=== PATIENT | female | born 1970 | race Hispanic/Latino ===

== ENCOUNTER 2016-07-22 20:10 | Emergency (ER) | payer SELFPAY ==
[~2016-07-22] VITALS: Ht 162.6 cm; Wt 83.0 kg
[~2016-07-22 20:10] MED LIST: FERROUS SULF325 M1 OR; LISINOPRIL10 MG PO; ZOFRAN ODT4 MG PO
[2016-07-22 21:59] LABS: URINE BILIRUBIN - DIPSTICK NEGATIVE (NEGATIVE); URINE BLOOD DIPSTICK LARGE (NEGATIVE); URINE CLARITY CLEAR; URINE COLOR YELLOW; URINE GLUCOSE - DIPSTICK NEGATIVE (NEGATIVE); URINE KETONE NEGATIVE (NEGATIVE); URINE LEUK ESTERASE NEGATIVE (NEGATIVE); URINE NITRITE - DIPSTICK NEGATIVE (Negative); URINE PROTEIN - DIPSTICK NEGATIVE (NEG-TRACE); URINE SPECIFIC GRAVITY 1.015; URINE UROBILINOGEN - DIPSTICK 0.2 E.U./dL (0.2)
[2016-07-22 22:07] LABS: ALBUMIN 4.6 g/dL (3.2-5.0); ALKALINE PHOSPHATASE 67 u/l (38-126); AMYLASE 67 u/l (30-110); ANION GAP 14 (6-22 (CALC)); BILIRUBIN, TOTAL 0.3 mg/dL (0.0-1.4); BUN 10 mg/dL (7-17); BUN/CREATININE RATIO 15 (12-20 (CALC)); CALCIUM 9.8 mg/dL (8.4-10.2); CARBON DIOXIDE 29 mmol/l (22-30); CHLORIDE 102 mmol/l (95-108); CREATININE 0.7 mg/dL (0.5-1.0); GFR > 60 ML/MIN (>=60 (CALC)); GFR FOR AFR.AMER. > 60 ML/MIN (>=60 (CALC)); GLUCOSE 88 mg/dL (65-105); LIPASE 194 u/l (23-300); SGOT/AST 18 u/l (14-36); SGPT/ALT 24 u/l (9-52); SODIUM 141 mmol/l (137-146); TOTAL PROTEIN 8.1 g/dL (6.3-8.2)
[2016-07-22 22:28] LABS: HEMATOCRIT 46.9 % (37.0-47.0); HEMOGLOBIN 14.5 g/dl (12.0-16.0); IMMATURE GRANULOCYTES 0.5 % (0.0-1.0); MEAN CELL VOLUME 84.1 fL CALC (80.0-100.0); MEAN CORPUSCULAR HGB CONC 30.9 g/L CALC (32.0-36.0); NEUT# 5.1 thou/uL (2.00-7.15); RED BLOOD COUNT 5.58 mill/uL (4.20-5.60); RED CELL DISTRI WIDTH 19.9 % (11.5-15.5)
[2016-07-22 22:37] LABS: URINE RBC TNTC RBC/hpf (0-5); URINE SQUAMOUS EPITHELIAL CELL FEW EPI/hpf (0-FEW)
[2016-07-22] MEDS ORDERED: ULTRAM50 M1 PO (23:57)
[2016-07-23 00:15] VITALS: BP 157/93
== END 2016-07-23 00:15 | disposition home or self-care (01) | DRG 761 ==
LOC: ED 20:10
PROVIDERS: Emergency Medicine
DX: N85.9 Noninflammatory disorder of uterus, unspecified (principal)

== ENCOUNTER 2016-10-05 10:22 | Emergency (ER) | payer SELFPAY ==
[~2016-10-05] VITALS: Ht 162.6 cm; Wt 68.2 kg
[~2016-10-05 10:22] MED LIST changes: +ULTRAM50 M1 PO
[2016-10-05] MEDS ORDERED: LISINOP/HCTZ1 TA1 PO (10:37)
[2016-10-05] MEDS ORDERED: FIORICET PO (10:37)
[2016-10-05 11:47] LABS: HEMATOCRIT 45.9 % (37.0-47.0); HEMOGLOBIN 14.9 g/dl (12.0-16.0); IMMATURE GRANULOCYTES 0.2 % (0.0-1.0); MEAN CELL VOLUME 87.9 fL CALC (80.0-100.0); MEAN CORPUSCULAR HGB 28.5 pG CALC (26.0-32.0); MEAN CORPUSCULAR HGB CONC 32.5 g/L CALC (32.0-36.0); NEUT# 4.16 thou/uL (2.00-7.15); RED BLOOD COUNT 5.22 mill/uL (4.20-5.60); RED CELL DISTRI WIDTH 15.9 % (11.5-15.5)
[2016-10-05 12:01] LABS: ANION GAP 15 (6-22 (CALC)); BUN 10 mg/dL (7-17); BUN/CREATININE RATIO 15 (12-20 (CALC)); CALCIUM 9.6 mg/dL (8.4-10.2); CARBON DIOXIDE 30 mmol/l (22-30); CHLORIDE 101 mmol/l (95-108); CREATININE 0.6 mg/dL (0.5-1.0); GFR > 60 ML/MIN (>=60 (CALC)); GFR FOR AFR.AMER. > 60 ML/MIN (>=60 (CALC)); GLUCOSE 83 mg/dL (65-105); POTASSIUM 3.6 mmol/l (3.5-5.1); SODIUM 143 mmol/l (137-146)
[2016-10-05 13:08] VITALS: BP 150/98
== END 2016-10-05 13:20 | disposition home or self-care (01) | DRG 103 ==
LOC: ED 10:22
PROVIDERS: Family Medicine
DX: G43.909 Migraine, unspecified, not intractable, without status migrainosus (principal); R11.0 Nausea

== ENCOUNTER 2017-10-01 17:51 | Emergency (ER) | payer SELFPAY ==
[~2017-10-01] VITALS: Ht 162.6 cm; Wt 87.2 kg
[~2017-10-01 17:51] MED LIST changes: +FIORICET PO; +LISINOP/HCTZ1 TA1 PO
[2017-10-01 18:42] LABS: HEMATOCRIT 47.8 % (37.0-47.0); HEMOGLOBIN 15.5 g/dl (12.0-16.0); IMMATURE GRANULOCYTES 0.5 % (0.0-5.0); MEAN CELL VOLUME 91.7 fL CALC (80.0-100.0); MEAN CORPUSCULAR HGB 29.8 pG CALC (26.0-32.0); MEAN CORPUSCULAR HGB CONC 32.4 g/L CALC (32.0-36.0); NEUT# 5.85 thou/uL (2.00-7.15); RED BLOOD COUNT 5.21 mill/uL (4.20-5.60); RED CELL DISTRI WIDTH 14.3 % (11.5-15.5)
[2017-10-01 18:55] LABS: ALBUMIN 4.7 g/dL (3.2-5.0); ALKALINE PHOSPHATASE 77 u/l (38-126); BILIRUBIN, TOTAL 0.6 mg/dL (0.0-1.4); BUN 12 mg/dL (7-17); BUN/CREATININE RATIO 22 (12-20 (CALC)); CARBON DIOXIDE 27 mmol/l (22-30); CHLORIDE 102 mmol/l (95-108); CREATININE 0.6 mg/dL (0.5-1.0); GFR > 60 ML/MIN (>=60 (CALC)); GFR FOR AFR.AMER. > 60 ML/MIN (>=60 (CALC)); SGPT/ALT 37 u/l (9-52); SODIUM 143 mmol/l (137-146); TOTAL PROTEIN 8.4 g/dL (6.3-8.2)
[2017-10-01 19:08] LABS: ANION GAP 19 (6-22 (CALC)); POTASSIUM 4.5 mmol/l (3.5-5.1); SGOT/AST 39 u/l (14-36)
[2017-10-01 20:57] VITALS: BP 139/81
[2017-10-01 20:59] LABS: URINE BILIRUBIN - DIPSTICK NEGATIVE (NEGATIVE); URINE BLOOD DIPSTICK TRACE-LYSED (NEGATIVE); URINE COLOR YELLOW; URINE GLUCOSE - DIPSTICK NEGATIVE (NEGATIVE); URINE KETONE NEGATIVE (NEGATIVE); URINE LEUK ESTERASE NEGATIVE (NEGATIVE); URINE NITRITE - DIPSTICK NEGATIVE (Negative); URINE PROTEIN - DIPSTICK NEGATIVE (NEG-TRACE); URINE SPECIFIC GRAVITY <=1.005; URINE UROBILINOGEN - DIPSTICK 0.2 E.U./dL (0.2)
[2017-10-01 21:01] LABS: URINE CLARITY CLEAR
[2017-10-01] MEDS ORDERED: CLONIDINE0.1 MG PO (21:06)
== END 2017-10-01 21:20 | disposition home or self-care (01) | DRG 103 ==
LOC: ED 17:51
PROVIDERS: Family Medicine
DX: G44.209 Tension-type headache, unspecified, not intractable (principal); I10 Essential (primary) hypertension; E11.9 Type 2 diabetes mellitus without complications

== ENCOUNTER 2020-02-01 17:45 | Emergency (ER) | payer SELFPAY ==
[~2020-02-01] VITALS: Ht 162.6 cm; Wt 85.0 kg
[~2020-02-01 17:45] MED LIST changes: +CLONIDINE0.1 MG PO
[2020-02-01 18:27] LABS: IMMATURE GRANULOCYTES 0.2 % (0.0-5.0); MEAN CELL VOLUME 90.4 fL CALC (80.0-100.0); MEAN CORPUSCULAR HGB 29.3 pG CALC (26.0-32.0); MEAN CORPUSCULAR HGB CONC 32.4 g/dL CAL (32.0-36.0); NEUT# 4.06 thou/uL (2.00-7.15); RED BLOOD COUNT 4.58 mill/uL (4.20-5.60); RED CELL DISTRI WIDTH 13.2 % (11.5-15.5)
[2020-02-01 18:28] LABS: HEMATOCRIT 41.4 % (37.0-47.0); HEMOGLOBIN 13.4 g/dl (12.0-16.0)
[2020-02-01] MEDS ORDERED: PRAVASTATIN SOD20 MG PO (18:28)
[2020-02-01] MEDS ORDERED: NAPROXEN250 MG PO (18:28)
[2020-02-01] MEDS ORDERED: LISINOP/HCTZ1 TA2 PO (18:29)
[2020-02-01 18:44] LABS: ALBUMIN 4.5 g/dL (3.2-5.0); ALKALINE PHOSPHATASE 78 u/l (38-126); ANION GAP 11 (6-22 (CALC)); BILIRUBIN, TOTAL 0.4 mg/dL (0.0-1.4); BUN 16 mg/dL (7-17); BUN/CREATININE RATIO 27 (12-20 (CALC)); CARBON DIOXIDE 32 mmol/l (22-30); CHLORIDE 102 mmol/l (95-108); CREATININE 0.6 mg/dL (0.5-1.0); GFR > 60 ML/MIN (>=60 (CALC)); GFR FOR AFR.AMER. > 60 ML/MIN (>=60 (CALC)); POTASSIUM 3.8 mmol/l (3.5-5.1); SGOT/AST 28 u/l (14-36); SODIUM 141 mmol/l (137-146); TOTAL PROTEIN 7.9 g/dL (6.3-8.2)
[2020-02-01 19:52] VITALS: BP 159/98
== END 2020-02-01 19:52 | disposition home or self-care (01) | DRG 305 ==
LOC: ED 17:45
DX: I10 Essential (primary) hypertension (principal); E11.9 Type 2 diabetes mellitus without complications

== ENCOUNTER 2023-09-23 06:15 | Emergency (ER) | payer OTHER ==
[2023-09-23] VITALS (10 sets, daily range): BP systolic 132–179; BP diastolic 80–112
[~2023-09-23] VITALS: Ht 162.6 cm; Wt 91.0 kg
[~2023-09-23 06:15] MED LIST changes: +LISINOP/HCTZ1 TA2 PO; +NAPROXEN250 MG PO; +PRAVASTATIN SOD20 MG PO
[2023-09-23] MEDS ORDERED: LOSARTAN/HCT1 TA2 PO (06:27)
[2023-09-23] MEDS ORDERED: ONDANSETRON HCl 4 MG/2 ML SDV IV ONE (06:30)
[2023-09-23] MEDS ORDERED: HYDROmorphone HCL 2 MG/AMP IV ONE (06:30)
[2023-09-23] MEDS ORDERED: ONDANSETRON HCl 4 MG/2 ML SDV IM ONE (07:10)
[2023-09-23] MEDS ORDERED: HYDROmorphone HCL 2 MG/AMP IM ONE (07:10)
[2023-09-23 08:47] LABS: BASO% 0.3 % (0-3); EOS% 0.4 % (0-8); IMMATURE GRANULOCYTES 0.5 % (0.0-5.0); LYMPH% 10.6 % (15-41); MEAN CELL VOLUME 95.5 fL CALC (80.0-100.0); MEAN CORPUSCULAR HGB 29.9 pG CALC (26.0-32.0); MEAN CORPUSCULAR HGB CONC 31.3 g/dL CAL (32.0-36.0); MONO% 5.9 % (2-13); NEUT# 9.15 thou/uL (2.00-7.15); NEUT% 82.3 % (42-76); RED BLOOD COUNT 5.32 mill/uL (4.20-5.60); RED CELL DISTRI WIDTH 15.6 % (11.5-15.5)
[2023-09-23 08:52] LABS: HEMATOCRIT 50.8 % (37.0-47.0); HEMOGLOBIN 15.9 g/dl (12.0-16.0)
[2023-09-23 09:11] LABS: ALBUMIN 4.6 g/dL (3.2-5.0); BILIRUBIN, TOTAL 0.5 mg/dL (0.02-1.3); CREATININE 0.6 mg/dL (0.5-1.0); POTASSIUM 3.7 mmol/l (3.5-5.1); TOTAL PROTEIN 7.8 g/dL (6.3-8.2)
== END 2023-09-23 09:40 | disposition home or self-care (01) | DRG 605 ==
LOC: ED 06:15
PROVIDERS: Emergency Medicine
DX: S20.212A Contusion of left front wall of thorax, initial encounter (principal); I10 Essential (primary) hypertension; E11.9 Type 2 diabetes mellitus without complications; W18.2XXA Fall in (into) shower or empty bathtub, initial encounter; Y93.E1 Activity, personal bathing and showering; Y92.002 Bathroom of unspecified non-institutional (private) residence as the place of occurrence of the external cause

== ENCOUNTER 2023-10-08 17:36 | Emergency (ER) | payer OTHER ==
[2023-10-08] VITALS (16 sets, daily range): BP systolic 113–175; BP diastolic 83–113
[~2023-10-08] VITALS: Ht 162.6 cm; Wt 99.8 kg
[~2023-10-08 17:36] MED LIST changes: +LOSARTAN/HCT1 TA2 PO
[2023-10-08 19:26] LABS: URINE BILIRUBIN - DIPSTICK Negative (NEGATIVE); URINE BLOOD DIPSTICK Negative (NEGATIVE); URINE GLUCOSE - DIPSTICK Negative (NEGATIVE); URINE KETONE Negative (NEGATIVE); URINE LEUK ESTERASE Negative (NEGATIVE); URINE NITRITE - DIPSTICK Negative (Negative); URINE PH 6.5 (4.5-8.0); URINE PROTEIN - DIPSTICK Negative (NEG-TRACE); URINE UROBILINOGEN - DIPSTICK 0.2 E.U./dL (0.2)
[2023-10-08 19:33] LABS: URINE COLOR Yellow
[2023-10-08] MEDS ORDERED: predniSONE 20 MG/TAB PO ONE (20:10)
[2023-10-08] MEDS ORDERED: METHOCARBAMOL 500 MG/TAB PO ONE (20:10)
[2023-10-08] MEDS ORDERED: METHOCARBAMOL500 MG PO (20:17)
[2023-10-08] MEDS ORDERED: PREDNISONE20 MG PO (20:17)
[2023-10-08] MEDS ORDERED: PERCOCET 5/325M1 TAB PO (21:23)
== END 2023-10-08 21:27 | disposition home or self-care (01) | DRG 552 ==
LOC: ED 17:36
PROVIDERS: Nurse Practitioner Family
DX: M47.26 Other spondylosis with radiculopathy, lumbar region (principal); S39.012A Strain of muscle, fascia and tendon of lower back, initial encounter; E27.8 Other specified disorders of adrenal gland; I10 Essential (primary) hypertension; E11.9 Type 2 diabetes mellitus without complications; X58.XXXA Exposure to other specified factors, initial encounter

== ENCOUNTER 2024-02-05 13:33 | Emergency (ER) | payer OTHER ==
[~2024-02-05] VITALS: Ht 162.6 cm; Wt 106.0 kg
[~2024-02-05 13:33] MED LIST changes: +METHOCARBAMOL500 MG PO; +PERCOCET 5/325M1 TAB PO; +PREDNISONE20 MG PO
[2024-02-05 13:42] VITALS: BP 126/88
[2024-02-05] MEDS ORDERED: KETOROLAC TROMETHAMINE 30 MG/ML SDV IV STA (13:43)
[2024-02-05] MEDS ORDERED: ISOVUE-300 (Iopamidol) 100 ML SDV IV ONE (13:45)
[2024-02-05 13:56] VITALS: BP 134/101
[2024-02-05 14:01] VITALS: BP 135/92
[2024-02-05 14:06] LABS: URINE BILIRUBIN - DIPSTICK Negative (NEGATIVE); URINE BLOOD DIPSTICK Negative (NEGATIVE); URINE GLUCOSE - DIPSTICK Negative (NEGATIVE); URINE KETONE Negative (NEGATIVE); URINE LEUK ESTERASE Negative (NEGATIVE); URINE NITRITE - DIPSTICK Negative (Negative); URINE PH 5.5 (4.5-8.0); URINE PROTEIN - DIPSTICK 30 mg/dL (NEG-TRACE); URINE SPECIFIC GRAVITY 1.025; URINE UROBILINOGEN - DIPSTICK 0.2 E.U./dL (0.2)
[2024-02-05 14:07] LABS: BASO% 0.2 % (0-3); EOS% 0.4 % (0-8); HEMATOCRIT 53.6 % (37.0-47.0); HEMOGLOBIN 16.3 g/dl (12.0-16.0); IMMATURE GRANULOCYTES 0.4 % (0.0-5.0); LYMPH% 13.7 % (15-41); MEAN CELL VOLUME 97.3 fL CALC (80.0-100.0); MEAN CORPUSCULAR HGB 29.6 pG CALC (26.0-32.0); MEAN CORPUSCULAR HGB CONC 30.4 g/dL CAL (32.0-36.0); MONO% 8.5 % (2-13); NEUT# 6.22 thou/uL (2.00-7.15); NEUT% 76.8 % (42-76); RED BLOOD COUNT 5.51 mill/uL (4.20-5.60); RED CELL DISTRI WIDTH 15.8 % (11.5-15.5)
[2024-02-05 14:17] LABS: URINE COLOR Yellow
[2024-02-05 14:19] LABS: URINE SQUAMOUS EPITHELIAL CELL RARE EPI/hpf (0-FEW); URINE WBC 0-2 WBC/hpf (0-5)
[2024-02-05 14:20] LABS: URINE MUCUS RARE hpf (NONE-FEW)
[2024-02-05 14:46] LABS: ALBUMIN 4.1 g/dL (3.2-5.0); ALKALINE PHOSPHATASE 77 u/l (38-126); ANION GAP 12 (6-22 (CALC)); BILIRUBIN, TOTAL 0.4 mg/dL (0.02-1.3); BUN 13 mg/dL (7-17); BUN/CREATININE RATIO 20 (12-20 (CALC)); CARBON DIOXIDE 36 mmol/l (22-30); CHLORIDE 97 mmol/l (95-108); CREATININE 0.7 mg/dL (0.5-1.0); ESTIMATED GFR 103 ML/MIN (>=90 (CALC)); POTASSIUM 4.1 mmol/l (3.5-5.1); SGOT/AST 27 u/l (14-36); SODIUM 140 mmol/l (137-146); TOTAL PROTEIN 6.7 g/dL (6.3-8.2)
[2024-02-05 15:06] LABS: AMYLASE 73 u/l (30-110); LIPASE 84 u/l (23-300)
[2024-02-05 15:32] VITALS: BP 154/104
[2024-02-05 15:34] VITALS: BP 139/81
[2024-02-05] MEDS ORDERED: ORPHENADRINE CITRATE 30 MG/ML AMP IV ONE (15:55)
[2024-02-05] MEDS ORDERED: KETOROLAC TROMETHAMINE 30 MG/ML SDV IV ONE (15:55)
[2024-02-05] MEDS ORDERED: NAPROXEN500 MG PO (16:36)
[2024-02-05] MEDS ORDERED: METHOCARBAMOL500 MG PO (16:36)
[2024-02-05 16:38] VITALS: BP 139/81
== END 2024-02-05 16:48 | disposition home or self-care (01) | DRG 206 ==
LOC: ED 13:33
PROVIDERS: Nurse Practitioner
DX: S22.32XA Fracture of one rib, left side, initial encounter for closed fracture (principal); E27.9 Disorder of adrenal gland, unspecified; I10 Essential (primary) hypertension; E11.9 Type 2 diabetes mellitus without complications; X58.XXXA Exposure to other specified factors, initial encounter
CPT/HCPCS: J2360; Q9967

== ENCOUNTER 2024-03-25 10:13 | Inpatient (IN) | payer OTHER ==
[~2024-03-25] VITALS: Ht 162.6 cm; Wt 109.1 kg
[2024-03-25] VITALS (15 sets, daily range): BP systolic 115–158; BP diastolic 35–113
[~2024-03-25 10:13] MED LIST changes: +NAPROXEN500 MG PO
[2024-03-25 10:50] LABS: BASO% 0.4 % (0-3); EOS% 0.1 % (0-8); HEMATOCRIT 54.6 % (37.0-47.0); HEMOGLOBIN 16.4 g/dl (12.0-16.0); IMMATURE GRANULOCYTES 0.3 % (0.0-5.0); MEAN CORPUSCULAR HGB 28.8 pG CALC (26.0-32.0); MONO% 8.2 % (2-13); RED BLOOD COUNT 5.69 mill/uL (4.20-5.60); RED CELL DISTRI WIDTH 16.5 % (11.5-15.5)
[2024-03-25] MEDS ORDERED: FUROSEMIDE 40 MG/4 ML SDV IV ONE (11:15)
[2024-03-25 11:30] LABS: ALBUMIN 3.6 g/dL (3.2-5.0); CREATININE 0.7 mg/dL (0.5-1.0); POTASSIUM 4.5 mmol/l (3.5-5.1); TOTAL PROTEIN 6.2 g/dL (6.3-8.2)
[2024-03-25 11:46] LABS: BILIRUBIN, TOTAL 0.7 mg/dL (0.02-1.3)
[2024-03-25] MEDS ORDERED: cefTRIAXone SODIUM 2 GM in SODIUM CHLORIDE 0.9% 100 ML IV ONE (12:25)
[2024-03-25] MEDS ORDERED: AZITHROMYCIN 500 MG in SODIUM CHLORIDE 0.9% 250 ML IV ONE (12:30)
[2024-03-25] MEDS ORDERED: PRAVASTATIN20 MG PO (12:42)
[2024-03-25] MEDS ORDERED: NORVASC5 M1 PO (12:43)
[2024-03-25] MEDS ORDERED: MAGNESIUM HYDROXIDE 30 ML UDC PO PRN (12:45)
[2024-03-25] MEDS ORDERED: IPRATROPIUM-Albuterol 0.5MG-2.5MG/3 ML NEB PRN (12:45)
[2024-03-25] MEDS ORDERED: SPIRONOLACT50 MG PO (12:45)
[2024-03-25] MEDS ORDERED: CYCLOBENZAPRINE10 MG PO (12:45)
[2024-03-25] MEDS ORDERED: ACETAMINOPHEN 325 MG/TAB PO PRN (12:45)
[2024-03-25] MEDS ORDERED: FUROSEMIDE20 MG PO (12:46)
[2024-03-25] MEDS ORDERED: POT CHLORIDE10 ME5 PO (12:47)
[2024-03-25] MEDS ORDERED: VENTOLIN HFA108 MCG PO (12:48)
[2024-03-25] MEDS ORDERED: AZITHROMYCIN 500 MG/VIAL SDV IV ONE (12:50)
[2024-03-25] MEDS ORDERED: amLODIPine BESYLATE 5 MG/TAB PO SCH (15:00)
[2024-03-25] MEDS ORDERED: guaiFENesin-CODEINE 200-20 MG/10 ML UDC PO PRN (15:55)
[2024-03-25] MEDS ORDERED: INSULIN LISPRO 100 UNITS/ML ML SC SCH (17:00)
[2024-03-25] MEDS ORDERED: FUROSEMIDE 40 MG/4 ML SDV IV SCH (21:00)
[2024-03-25] MEDS ORDERED: ENOXAPARIN SODIUM 40 MG/0.4 ML SYR SC SCH (21:00)
[2024-03-26] VITALS (8 sets, daily range): BP systolic 102–148; BP diastolic 67–93
[2024-03-26 05:36] LABS: BASO% 0.4 % (0-3); EOS% 0.3 % (0-8); HEMATOCRIT 56.5 % (37.0-47.0); HEMOGLOBIN 16.2 g/dl (12.0-16.0); IMMATURE GRANULOCYTES 0.7 % (0.0-5.0); LYMPH% 11.1 % (15-41); MEAN CELL VOLUME 101.1 fL CALC (80.0-100.0); MEAN CORPUSCULAR HGB CONC 28.7 g/dL CAL (32.0-36.0); MONO% 10.7 % (2-13); NEUT# 5.31 thou/uL (2.00-7.15); NEUT% 76.8 % (42-76); RED BLOOD COUNT 5.59 mill/uL (4.20-5.60); RED CELL DISTRI WIDTH 16.5 % (11.5-15.5)
[2024-03-26 05:53] LABS: ALBUMIN 3.8 g/dL (3.2-5.0); BILIRUBIN, TOTAL 0.5 mg/dL (0.02-1.3); MAGNESIUM 1.9 mg/dL (1.6-2.3); POTASSIUM 4.7 mmol/l (3.5-5.1); TOTAL PROTEIN 6.4 g/dL (6.3-8.2)
[2024-03-26] MEDS ORDERED: AZITHROMYCIN 500 MG in SODIUM CHLORIDE 0.9% 250 ML IV SCH (12:30)
[2024-03-27] VITALS (40 sets, daily range): BP systolic 75–139; BP diastolic 58–116
[2024-03-27 05:47] LABS: ALBUMIN 3.5 g/dL (3.2-5.0); BILIRUBIN, TOTAL 0.7 mg/dL (0.02-1.3); CREATININE 0.8 mg/dL (0.5-1.0); MAGNESIUM 1.7 mg/dL (1.6-2.3); POTASSIUM 3.8 mmol/l (3.5-5.1)
[2024-03-27 05:55] LABS: BASO% 0.4 % (0-3); EOS% 0.7 % (0-8); HEMATOCRIT 52.8 % (37.0-47.0); HEMOGLOBIN 15.7 g/dl (12.0-16.0); IMMATURE GRANULOCYTES 0.4 % (0.0-5.0); MEAN CELL VOLUME 98.9 fL CALC (80.0-100.0); MEAN CORPUSCULAR HGB 29.4 pG CALC (26.0-32.0); MEAN CORPUSCULAR HGB CONC 29.7 g/dL CAL (32.0-36.0); MONO% 10.5 % (2-13); NEUT# 5.94 thou/uL (2.00-7.15); RED BLOOD COUNT 5.34 mill/uL (4.20-5.60); RED CELL DISTRI WIDTH 16.1 % (11.5-15.5)
[2024-03-28] VITALS (33 sets, daily range): BP systolic 113–160; BP diastolic 71–112
[2024-03-28 05:19] LABS: BASO% 0.6 % (0-3); EOS% 2.1 % (0-8); HEMATOCRIT 49.9 % (37.0-47.0); IMMATURE GRANULOCYTES 0.6 % (0.0-5.0); LYMPH% 14.3 % (15-41); MEAN CELL VOLUME 98.4 fL CALC (80.0-100.0); MEAN CORPUSCULAR HGB 29.6 pG CALC (26.0-32.0); MEAN CORPUSCULAR HGB CONC 30.1 g/dL CAL (32.0-36.0); NEUT# 3.68 thou/uL (2.00-7.15); NEUT% 70.4 % (42-76); RED BLOOD COUNT 5.07 mill/uL (4.20-5.60); RED CELL DISTRI WIDTH 15.5 % (11.5-15.5)
[2024-03-28 05:42] LABS: ALBUMIN 3.1 g/dL (3.2-5.0); BILIRUBIN, TOTAL 0.8 mg/dL (0.02-1.3); CREATININE 0.6 mg/dL (0.5-1.0); MAGNESIUM 1.7 mg/dL (1.6-2.3); POTASSIUM 3.6 mmol/l (3.5-5.1); TOTAL PROTEIN 5.5 g/dL (6.3-8.2)
[2024-03-29] VITALS (11 sets, daily range): BP systolic 116–139; BP diastolic 75–104
[2024-03-29 05:25] LABS: HEMOGLOBIN 16.6 g/dl (12.0-16.0); MEAN CELL VOLUME 97.4 fL CALC (80.0-100.0); MEAN CORPUSCULAR HGB 28.8 pG CALC (26.0-32.0); MEAN CORPUSCULAR HGB CONC 29.6 g/dL CAL (32.0-36.0); RED BLOOD COUNT 5.76 mill/uL (4.20-5.60); RED CELL DISTRI WIDTH 15.6 % (11.5-15.5)
[2024-03-29 05:30] LABS: HEMATOCRIT 56.1 % (37.0-47.0)
[2024-03-29 05:51] LABS: ALBUMIN 3.3 g/dL (3.2-5.0); BILIRUBIN, TOTAL 0.7 mg/dL (0.02-1.3); CREATININE 0.6 mg/dL (0.5-1.0); MAGNESIUM 1.9 mg/dL (1.6-2.3); POTASSIUM 3.6 mmol/l (3.5-5.1); TOTAL PROTEIN 5.9 g/dL (6.3-8.2)
[2024-03-29] MEDS ORDERED: VIBRAMYCIN100 M2 PO (14:43)
== END 2024-03-29 17:30 | DRG 193 ==
LOC: ED 10:13 → MS2 12:29 → ICU 03-27 09:30
PROVIDERS: Family Medicine; Nurse Practitioner Family; ADMIT Internal Medicine; ATTEND Internal Medicine
PROC: 5A09357 Assistance with Respiratory Ventilation, Less than 24 Consecutive Hours, Continuous Positive Airway Pressure (ICD-10-PCS; principal; 2024-03-27)
DX: J18.9 Pneumonia, unspecified organism (principal); J96.01 Acute respiratory failure with hypoxia; J96.02 Acute respiratory failure with hypercapnia; J44.0 Chronic obstructive pulmonary disease with (acute) lower respiratory infection; I11.0 Hypertensive heart disease with heart failure; I50.9 Heart failure, unspecified
CPT/HCPCS: J0456; J0696; J1650; J1815; J1940

== ENCOUNTER 2024-04-14 09:05 | Inpatient (IN) | payer OTHER ==
[2024-04-14] VITALS (9 sets, daily range): BP systolic 135–154; BP diastolic 85–117
[~2024-04-14] VITALS: Ht 162.6 cm; Wt 100.4 kg
[~2024-04-14 09:05] MED LIST changes: +CYCLOBENZAPRINE10 MG PO; +FUROSEMIDE20 MG PO; +NORVASC5 M1 PO; +POT CHLORIDE10 ME5 PO; +PRAVASTATIN20 MG PO; +SPIRONOLACT50 MG PO; +VENTOLIN HFA108 MCG PO; +VIBRAMYCIN100 M2 PO
[2024-04-14] MEDS ORDERED: FUROSEMIDE 40 MG/4 ML SDV IV ONE (09:20)
[2024-04-14 09:47] LABS: BASO% 0.8 % (0-3); EOS% 0.5 % (0-8); HEMATOCRIT 53.6 % (37.0-47.0); HEMOGLOBIN 16.1 g/dl (12.0-16.0); IMMATURE GRANULOCYTES 0.3 % (0.0-5.0); LYMPH% 10.4 % (15-41); MEAN CELL VOLUME 94.5 fL CALC (80.0-100.0); MEAN CORPUSCULAR HGB 28.4 pG CALC (26.0-32.0); MONO% 6.3 % (2-13); NEUT# 5.33 thou/uL (2.00-7.15); NEUT% 81.7 % (42-76); RED BLOOD COUNT 5.67 mill/uL (4.20-5.60); RED CELL DISTRI WIDTH 16.3 % (11.5-15.5)
[2024-04-14 10:01] LABS: ALBUMIN 3.7 g/dL (3.2-5.0); BILIRUBIN, TOTAL 0.8 mg/dL (0.02-1.3); CREATININE 0.7 mg/dL (0.5-1.0); POTASSIUM 4.3 mmol/l (3.5-5.1); TOTAL PROTEIN 6.5 g/dL (6.3-8.2)
[2024-04-14 13:40] LABS: URINE BILIRUBIN - DIPSTICK Negative (NEGATIVE); URINE BLOOD DIPSTICK Negative (NEGATIVE); URINE GLUCOSE - DIPSTICK Negative (NEGATIVE); URINE KETONE Negative (NEGATIVE); URINE LEUK ESTERASE Negative (NEGATIVE); URINE NITRITE - DIPSTICK Negative (Negative); URINE PROTEIN - DIPSTICK Negative (NEG-TRACE); URINE SPECIFIC GRAVITY <=1.005; URINE UROBILINOGEN - DIPSTICK 0.2 E.U./dL (0.2)
[2024-04-14 13:43] LABS: URINE COLOR Yellow
[2024-04-14] MEDS ORDERED: IPRATROPIUM-Albuterol 0.5MG-2.5MG/3 ML NEB ONE (13:50)
[2024-04-14] MEDS ORDERED: MAGNESIUM HYDROXIDE 30 ML UDC PO PRN (15:45)
[2024-04-14] MEDS ORDERED: ACETAMINOPHEN 325 MG/TAB PO PRN (15:45)
[2024-04-14] MEDS ORDERED: IPRATROPIUM-Albuterol 0.5MG-2.5MG/3 ML NEB PRN (15:50)
[2024-04-14] MEDS ORDERED: FUROSEMIDE 40 MG/4 ML SDV IV SCH (18:00)
[2024-04-14] MEDS ORDERED: LOSARTAN Potassium 25 MG/TAB PO SCH (18:05)
[2024-04-14] MEDS ORDERED: ENOXAPARIN SODIUM 40 MG/0.4 ML SYR SC SCH (21:00)
[2024-04-15] VITALS (7 sets, daily range): BP systolic 90–153; BP diastolic 65–107
[2024-04-15 04:59] LABS: HEMATOCRIT 54.3 % (37.0-47.0); HEMOGLOBIN 15.8 g/dl (12.0-16.0); MEAN CELL VOLUME 96.8 fL CALC (80.0-100.0); MEAN CORPUSCULAR HGB 28.2 pG CALC (26.0-32.0); MEAN CORPUSCULAR HGB CONC 29.1 g/dL CAL (32.0-36.0); RED BLOOD COUNT 5.61 mill/uL (4.20-5.60); RED CELL DISTRI WIDTH 16.1 % (11.5-15.5)
[2024-04-15 05:14] LABS: ALBUMIN 3.5 g/dL (3.2-5.0); BILIRUBIN, TOTAL 0.7 mg/dL (0.02-1.3); CREATININE 0.7 mg/dL (0.5-1.0); MAGNESIUM 1.5 mg/dL (1.6-2.3); POTASSIUM 3.7 mmol/l (3.5-5.1)
[2024-04-15] MEDS ORDERED: MAGNESIUM SULFATE HEPTAHYDRATE 50 ML IV SCH (08:30)
[2024-04-16 04:00] VITALS: BP 120/89
[2024-04-16 04:11] VITALS: BP 120/89
[2024-04-16 04:53] LABS: BASO% 0.5 % (0-3); EOS% 2.2 % (0-8); HEMATOCRIT 53.9 % (37.0-47.0); IMMATURE GRANULOCYTES 0.3 % (0.0-5.0); LYMPH% 9.7 % (15-41); MEAN CELL VOLUME 96.8 fL CALC (80.0-100.0); MEAN CORPUSCULAR HGB 28.7 pG CALC (26.0-32.0); MEAN CORPUSCULAR HGB CONC 29.7 g/dL CAL (32.0-36.0); MONO% 7.4 % (2-13); NEUT# 6.15 thou/uL (2.00-7.15); NEUT% 79.9 % (42-76); RED BLOOD COUNT 5.57 mill/uL (4.20-5.60); RED CELL DISTRI WIDTH 15.9 % (11.5-15.5)
[2024-04-16 04:57] LABS: ALBUMIN 3.5 g/dL (3.2-5.0); BILIRUBIN, TOTAL 0.5 mg/dL (0.02-1.3); CREATININE 0.9 mg/dL (0.5-1.0); POTASSIUM 3.6 mmol/l (3.5-5.1)
[2024-04-16 05:21] LABS: MAGNESIUM 1.9 mg/dL (1.6-2.3)
[2024-04-16 07:00] VITALS: BP 137/89; BP 157/61
[2024-04-16 10:57] VITALS: BP 127/90
[2024-04-16] MEDS ORDERED: acetaZOLAMIDE 125 MG TAB PO SCH (11:30)
[2024-04-16 14:56] VITALS: BP 126/84
[2024-04-16 20:01] VITALS: BP 114/76
[2024-04-17] VITALS (7 sets, daily range): BP systolic 97–146; BP diastolic 62–94
[2024-04-17 05:47] LABS: ALBUMIN 3.9 g/dL (3.2-5.0); CREATININE 0.8 mg/dL (0.5-1.0); MAGNESIUM 2.1 mg/dL (1.6-2.3); POTASSIUM 3.4 mmol/l (3.5-5.1); TOTAL PROTEIN 6.6 g/dL (6.3-8.2)
[2024-04-17 05:49] LABS: BASO% 0.4 % (0-3); EOS% 2.1 % (0-8); HEMOGLOBIN 17.4 g/dl (12.0-16.0); IMMATURE GRANULOCYTES 0.1 % (0.0-5.0); LYMPH% 16.6 % (15-41); MEAN CORPUSCULAR HGB 28.8 pG CALC (26.0-32.0); MONO% 7.5 % (2-13); NEUT# 5.2 thou/uL (2.00-7.15); NEUT% 73.3 % (42-76); RED BLOOD COUNT 6.04 mill/uL (4.20-5.60); RED CELL DISTRI WIDTH 15.7 % (11.5-15.5)
[2024-04-17 06:00] LABS: BILIRUBIN, TOTAL 0.8 mg/dL (0.02-1.3)
[2024-04-17] MEDS ORDERED: POTASSIUM CHLORIDE 20 MEQ/TAB PO ONE (08:30)
[2024-04-18 03:33] VITALS: BP 126/88
[2024-04-18 05:33] LABS: BASO% 0.7 % (0-3); EOS% 2.1 % (0-8); HEMOGLOBIN 17.6 g/dl (12.0-16.0); LYMPH% 16.9 % (15-41); MEAN CELL VOLUME 96.7 fL CALC (80.0-100.0); MEAN CORPUSCULAR HGB 27.9 pG CALC (26.0-32.0); MEAN CORPUSCULAR HGB CONC 28.9 g/dL CAL (32.0-36.0); MONO% 9.8 % (2-13); NEUT# 3.98 thou/uL (2.00-7.15); NEUT% 69.5 % (42-76); RED BLOOD COUNT 6.3 mill/uL (4.20-5.60); RED CELL DISTRI WIDTH 16.2 % (11.5-15.5)
[2024-04-18 05:46] LABS: HEMATOCRIT 60.9 % (37.0-47.0)
[2024-04-18 05:50] LABS: ALBUMIN 3.9 g/dL (3.2-5.0); BILIRUBIN, TOTAL 0.6 mg/dL (0.02-1.3); CREATININE 0.9 mg/dL (0.5-1.0); POTASSIUM 3.5 mmol/l (3.5-5.1); TOTAL PROTEIN 6.7 g/dL (6.3-8.2)
[2024-04-18 07:10] VITALS: BP 131/94
[2024-04-18] MEDS ORDERED: POTASSIUM CHLORIDE 20 MEQ/TAB PO SCH (09:00)
[2024-04-18 09:20] VITALS: BP 102/77
[2024-04-18] MEDS ORDERED: ACETAZOLAMID125 MG PO (09:53)
[2024-04-18] MEDS ORDERED: LOSARTAN POTASS25 MG PO (09:54)
[2024-04-18 11:57] VITALS: BP 110/82
== END 2024-04-18 12:45 | disposition home or self-care (01) | DRG 291 ==
LOC: ED 09:05 → ED-I 13:49 → ED 14:00 → MS2 14:01
PROVIDERS: Family Medicine; Nurse Practitioner Family; ADMIT Internal Medicine; ATTEND Internal Medicine
DX: I11.0 Hypertensive heart disease with heart failure (principal); I50.23 Acute on chronic systolic (congestive) heart failure; E87.3 Alkalosis; J96.12 Chronic respiratory failure with hypercapnia; J96.11 Chronic respiratory failure with hypoxia; J44.9 Chronic obstructive pulmonary disease, unspecified; T50.1X5A Adverse effect of loop [high-ceiling] diuretics, initial encounter; T50.0X6A Underdosing of mineralocorticoids and their antagonists, initial encounter; Z91.128 Patient's intentional underdosing of medication regimen for other reason; E66.01 Morbid (severe) obesity due to excess calories; Z99.81 Dependence on supplemental oxygen
CPT/HCPCS: J1650; J1940; J3475